=== PATIENT | male | born 1975 | race African-American/Black ===

== ENCOUNTER 2016-10-01 12:20 | Emergency (ER) | payer SELFPAY ==
[2016-10-01 13:10] VITALS: BP 148/93
--- NOTE | 2016-10-01 13:20 | ER Document Report ---
Doctor's Note Notes: 10/01/16 13:20 Patient here in our me for recheck and reevaluation complete resolution of his symptoms he denies any abdominal pain vomiting fever or chills well-appearing nontoxic no acute abdominal findings stable for discharge follow-up as directed return for increasing worsening or new symptoms
--- NOTE | 2016-10-01 13:24 | ER Document Report ---
[id number] Quality of pain: No pain Severity: None Pain Level: Denies Context: Patient was evaluated in the emergency department yesterday for abdominal pain. Patient states that he was advised by the ER provider to return today for recheck. Patient currently denies any complaints. Patient denies abdominal pain, nausea, vomiting, diarrhea, or fever. Associated Symptoms: denies: Chest pain, Nonproductive cough, Productive cough, Fever, Vomiting, Rhinnorhea, Shortness of breath Exacerbated by: Denies Relieved by: Denies Similar symptoms previously: No Recently seen / treated by doctor: Yes - yesterday in ER - ROS ROS below otherwise negative: Yes Systems Reviewed and Negative: Yes All other systems reviewed and negative - CONSTITUTIONAL Constitutional: DENIES: Fever, Chills - NEURO Neurology: DENIES: Weakness - CARDIOVASCULAR Cardiovascular: DENIES: Chest pain - RESPIRATORY Respiratory: DENIES: Trouble Breathing, Coughing - GASTROINTESTINAL Gastrointestinal: DENIES: Abdominal Pain, Nausea, Patient vomiting, Diarrhea - URINARY Urinary: DENIES: Dysuria, Urgency - REPRODUCTIVE Reproductive: DENIES: : - MUSCULOSKELETAL Musculoskeletal: DENIES: Extremity pain, Back Pain - DERM Skin Color: Normal Skin Problems: None - NURSING COMMENTS Comment: Pt reports continued tenderness to epigastrum, Dr Zamudio aware. Pt to follow up with surgery regarding gallstones Past Medical History - General Information source: Patient - Social History Smoking Status: Current Every Day Smoker Frequency of alcohol use: Rare Drug Abuse: Marijuana Lives with: Family Family History: Reviewed & Not Pertinent, Hypertension Pulmonary Medical History: Reports: Hx Asthma GI Medical History: Reports: Other - Gastritis Past Surgical History: Reports: Other - Surgery on scalp - Immunizations Hx Diphtheria, Pertussis, Tetanus Vaccination: No Vertical Provider Document - CONSTITUTIONAL Agree With Documented VS: Yes Exam Limitations: No Limitations General Appearance: WD/WN, No Apparent Distress - INFECTION CONTROL TRAVEL OUTSIDE OF THE [place] IN LAST 30 DAYS: No - HEENT HEENT: Atraumatic, Normal ENT Exam, Normocephalic - NECK Neck: Normal Inspection, Supple - RESPIRATORY Respiratory: Breath Sounds Normal, No Respiratory Distress O2 Sat by Pulse Oximetry: 100 - CARDIOVASCULAR Cardiovascular: Regular Rate, Regular Rhythm, No Murmur - GI/ABDOMEN Gastrointestinal: Abdomen Soft Notes: Mild epigastric tenderness with palpation - BACK Back: Normal Inspection. negative: CVA Tenderness-Right, CVA Tenderness-Left - MUSCULOSKELETAL/EXTREMETIES Musculoskeletal/Extremeties: MAEW, FROM, Non-Tender - NEURO Level of Consciousness: Awake, Alert, Appropriate Motor/Sensory: No Motor Deficit - DERM Integumentary: Warm, Dry, No Rash Course - Re-evaluation Re-evalutation: 10/01/16 Dr. Zamudio to bedside for consultation, does not recommend any additional laboratory studies. - Vital Signs Vital signs: Temp Pulse Resp BP Pulse Ox 98.1 F 65 16 148/93 H 100 10/01/16 13:08 10/01/16 13:08 10/01/16 13:08 10/01/16 13:08 10/01/16 13:08 Discharge - Discharge Clinical Impression: Epigastric abdominal pain, Hx of alcoholic gastritis, Hx of cholelithiasis Condition: Stable Disposition: HOME, SELF-CARE Instructions: Abdominal Pain ([facility]), Gallbladder Disease ([facility]) Additional Instructions: Return immediately for any new or worsening symptoms Followup with your primary care provider, call tomorrow to make a followup appointment Follow up with the general surgeon for further evaluation of gallstones Continue to avoid use of alcohol or other recreational drugs such as cocaine Referrals: [facility] [Provider Group] - Follow up as needed [facility] [Provider Group] - Follow up in 3-5 days
== END 2016-10-01 13:32 | disposition home or self-care (01) ==
LOC: ER 12:20
DX: K80.80 Other cholelithiasis without obstruction (principal); R10.13 Epigastric pain; J45.909 Unspecified asthma, uncomplicated; F17.200 Nicotine dependence, unspecified, uncomplicated; Z87.19 Personal history of other diseases of the digestive system
CPT/HCPCS: 99283